=== PATIENT | male | born 1960 | race American Indian/Alaskan Native ===

== ENCOUNTER 2017-01-23 07:44 | Day surgery (SDC) | payer BC ==
[~2017-01-23 07:44] MED LIST: ANCEF/STERILE WATER 2 GM/20 ML IV NR
[2017-01-23] MEDS ORDERED: NACL 0.9% 1000 ML 1,000 ML ONE ×2 (08:50→11:13)
--- NOTE | 2017-01-23 08:55 | Anesthesia Consultation ---
Anesthesia Consult and Med Hx Date of service: 01/23/17 - Airway Anesthetic Teeth Evaluation: Good (missing 2nd molar lower right) ROM Head & Neck: Adequate Mental/Hyoid Distance: Adequate Mallampati Class: Class II Intubation Access Assessment: Probably Good - Pulmonary Exam CTA: Yes - Cardiac Exam Cardiac Exam: RRR - Pre-Operative Health Status ASA Pre-Surgery Classification: ASA2 Proposed Anesthetic Plan: General Nerve Block: IS - Pulmonary SOB: Yes (W/EXERTION) Hx Sleep Apnea: No (EDGAR PRE SCREEN HIGH RISK.) - Cardiovascular System Hx Hypertension: Yes (15 YRS (took metoprolol and lisinopril this am)) - Central Nervous System Hx Neuromuscular Disorder: Yes (Restless Leg Syndrome) Hx Psychiatric Problems: No - Endocrine Hx Non-Insulin Dependent Diabetes: Yes - Hematic Hx Anemia: No Hx Sickle Cell Disease: No - Other Systems Hx Alcohol Use: Yes (WEEKENDS USUALLY/6 BEERS) Hx Substance Use: No Hx Cancer: No
--- NOTE | 2017-01-23 08:55 | Anesthesia Day of Surgery ---
Anesthesia Day of Surgery - Day of Surgery Patient Examined: Yes Patient H&P Reviewed: Yes Patient is NPO: Yes Beta Blockers: Yes (took at 06:45 with sip water) Cardiac Clearance: No Pulmonary Clearance: No
[2017-01-23] MEDS ORDERED: SUBLIMAZE IV ONE (08:58)
[2017-01-23] MEDS ORDERED: PEPCID PO NR (09:00)
[2017-01-23] MEDS ORDERED: VERSED IV NR (09:00)
[2017-01-23] MEDS ORDERED: NACL 0.9% 1000 ML 1,000 ML IV SCH (09:00)
[2017-01-23] MEDS ORDERED: MARCAINE-EPI 0.5%-1:200,000 INFILTRATI ONE (09:27)
[2017-01-23] MEDS ORDERED: DIPRIVAN 10 MG/ML IV ONE (09:58)
[2017-01-23] MEDS ORDERED: SUBLIMAZE ONE (09:58)
[2017-01-23] MEDS ORDERED: XYLOCAINE MPF 2% ONE (09:58)
[2017-01-23] MEDS ORDERED: DECADRON ONE (09:58)
[2017-01-23] MEDS ORDERED: ROBINUL ONE ×2 (09:58)
[2017-01-23] MEDS ORDERED: BLOXIVERZ ONE (09:58)
[2017-01-23] MEDS ORDERED: ZEMURON IV ONE (09:58)
[2017-01-23] MEDS ORDERED: ZOFRAN ONE (09:59)
[2017-01-23] MEDS ORDERED: ADRENALIN IV ONE (10:40)
[2017-01-23] MEDS ORDERED: ePHEDrine SULFATE ONE (10:43)
[2017-01-23] MEDS ORDERED: LACTATED RINGERS 1,000 ML IV SCH (11:00)
[2017-01-23] MEDS ORDERED: ZOFRAN IV PRN (11:00)
[2017-01-23] MEDS ORDERED: DILAUDID IV PRN (11:00)
--- NOTE | 2017-01-23 12:06 | Short Stay Summary ---
Short Stay Documentation Date of service: 01/23/17 - Allergies and Medications Current Medications: Allergies No Known Allergies Allergy (Verified 01/18/17 18:04) Home Medications Medication Instructions Recorded Confirmed Last Taken Type Lisinopril [Zestril] 20 mg PO QDAY 01/18/17 01/18/17 01/23/17 06:45 History Metformin HCl [Glucophage] 1,000 mg PO BID 01/18/17 01/18/17 01/22/17 History Metoprolol Xl [Metoprolol 25 mg PO QDAY 01/18/17 01/18/17 01/23/17 06:45 History SUCCINATE ER TAB] Multivit-Min/FA/Lycopen/Lutein 1 each PO DAILY 01/18/17 01/18/17 01/22/17 History [Centrum Silver Tablet] Ropinirole HCl 0.5 mg PO QHS 01/18/17 01/18/17 01/22/17 History Sitagliptin Phosphate [Januvia] 50 mg PO DAILY 01/18/17 01/18/17 01/22/17 History glyBURIDE [Diabeta] 5 mg PO BID 01/18/17 01/18/17 01/22/17 History Active Medications Cefazolin Sodium (Ancef/Sterile Water 2 Gm/20 Ml) 2 gm IV PREOP NR Stop: 01/23/17 21:00 Famotidine (Pepcid) 20 mg PO PREOP NR Stop: 01/23/17 23:00 Last Admin: 01/23/17 09:14 Dose: 20 mg Hydromorphone HCl (Dilaudid) 0.5 mg IV Q10MIN PRN PRN Reason: Pain , Severe (7-10) Stop: 01/23/17 15:00 Sodium Chloride (Nacl 0.9% 1000 Ml) 1,000 mls @ 75 mls/hr IV DIRECT ZION Lactated Ringer's (Lactated Ringers) 1,000 mls @ 100 mls/hr IV DIRECT ZION Midazolam HCl (Versed) 2 mg IV PREOP NR Stop: 01/23/17 23:59 Last Admin: 01/23/17 09:20 Dose: 2 mg - Brief post op/procedure progress note Date of procedure: 01/23/17 Pre-op diagnosis: persistent left shoulder pain, adhesive capsulitis, AC joint arthritis, rot Post-op diagnosis: same Procedure: left shoudler arthroscopy, subacromial decompression, distal clavicle excision, lysis of adhesions, manipulation under anesthesia, debriedment of extensive subacromial bursitis, rotator cuff repair Anesthesia: GETA Findings: adhesive capsulitis, rotator cuff tear Surgeon: BALDOMERO GONSALES Estimated blood loss: minimal Pathology: none Condition: stable - Hospital course Hospital course: no complications - Disposition Condition at discharge: Good Disposition: DC-01 TO HOME OR SELFCARE Short Stay Discharge Plan Follow up with: CLAUDIA HINSON MD [Primary Care Provider] - 7 Days
[2017-01-23 13:36] VITALS: BP 136/58
--- NOTE | 2017-01-23 14:23 | Post Anesthesia Evaluation ---
- Post Anesthesia Evaluation Patient Participated: Yes Airway Patent: Yes Stable Respiratory Function: Yes Nausea/Vomiting: No Temp > 96.8F: Yes Pain Manageable: Yes Adequeate Hydration: Yes Anesthesia Complications: No
--- NOTE | 2017-01-23 22:37 | Operative Report ---
PREOPERATIVE DIAGNOSES: Persistent left shoulder pain, acromioclavicular joint arthritis, adhesive capsulitis with rotator cuff tear. POSTOPERATIVE DIAGNOSES: Persistent left shoulder pain, advanced acromioclavicular joint arthritic changes causing severe impingement upon the rotator cuff, adhesive capsulitis with marked severe loss of range of motion, extensive subacromial bursitis, rotator cuff tear involving the supraspinatus tendon. OPERATIVE PROCEDURE: Left shoulder arthroscopy, subacromial decompression, distal clavicle excision, lysis of adhesions, manipulation under anesthesia, debridement of extensive subacromial bursitis, arthroscopic [id number] rotator cuff repair. ANESTHESIA: General plus an interscalene block to the operative left upper extremity. PREOPERATIVE ANTIBIOTICS: Ancef 2 gm IV within 1 hour of skin incision. DVT prophylaxis open toe, thigh high compression stockings and SCD pumps to bilateral lower extremities. SURGEON: Brandt Epperson M.D. FIRST CALENDER WORKER: Whitley Carter, certified appliance service technician. OPERATIVE INSTRUMENTATION: Two #2 Cobraided sutures for [id number] rotator cuff repair. OPERATIVE COMPLICATIONS: None. OPERATION HISTORY AND PHYSICAL: This is a 56-year-old male who has had persistent progressively worsening left shoulder pain with marked loss of range of motion with severe limitation of his normal activities of daily living, which has failed to improve despite extensive nonoperative treatment. MRI scan was performed, which was positive for acromioclavicular joint arthritic changes as well as a full thickness tear involving the rotator cuff. The MRI findings and diagnosis were discussed at length and after making sure the patient understood the diagnosis and all his questions were answered. I then discussed treatment alternatives of surgical and nonsurgical including risks and benefits of both. After a long lengthy discussion, the patient opted to proceed with operative intervention. This will entail a left shoulder arthroscopy, subacromial decompression, distal clavicle excision, arthroscopic rotator cuff repair and surgery as indicated. The risks of which were discussed to include but not exclusive of infection, blood loss, nerve damage, loss of range of motion and persistent pain. Again, the patient understood. All questions answered and he wished to proceed with operative intervention. OPERATIVE PROCEDURE: The patient was seen in the preoperative holding area at which point an informed consent was reviewed and the appropriate left upper extremity was identified and then marked. Anesthesia then performed and interscalene block of the left upper extremity. After confirmation of adequate analgesia of the left upper extremity, the patient was then brought back to the operating room and placed supine on a standard operating room table, at which point general anesthesia was administered and endotracheal tube was inserted. After confirmation of adequate general anesthesia and checking appropriate placement of the endotracheal tube, we then made sure that all bony prominences were well padded. There were no wrinkles in the compression stockings on bilateral lower extremities and SCD pumps were applied to bilateral lower extremities. The patient has had to beach chair position using the beach chair positioner, which was already in place and his head was secured in a nice neutral position. The beach chair well arm callahan was used to secure the right arm in a neutral position. A pillow was placed beneath the posterior aspect of bilateral lower extremities placed in slight flexion of the hips and knees make sure the popliteal fossa was free and clear and the foot of the bed was slightly flexed. The left arm was then examined under anesthesia. The patient has severe loss of range of motion with forward flexion only to 120, abduction 90, external rotation of 40 degrees, internal rotation of 30 degrees. Following examination under anesthesia of the left upper extremity was then prepped and draped in the usual sterile fashion. After prepping and draping, a timeout was called and appropriate left upper extremity was identified which again had been marked in the preop holding area. I began the procedure by first making a standard posterior portal with a #15 blade. Once the portal was established, a cannula with blunt trocar was inserted into the intra-articular aspect of the glenohumeral joint. This went without difficulty or damage to articular cartilage. Once in place, the arthroscopic camera immediately placed in the anterior aspect of the joint where we established anterior portal by first inserting an 18-gauge spinal needle between the subscap and biceps tendon under direct arthroscopic visualization. Once confirmed the appropriate position, a 15 blade was then used to establish the anterior portal. Once the portal was established, blunt trocar was inserted via the portal site. Following an arthroscopic probe, we began our diagnostic arthroscopy in anterior aspect of the shoulder joint. The patient was found to have severe copious amount of severe adhesions with marked tightness throughout the glenohumeral joint capsule with severe inflammation and synovitis. The adhesions were gently debrided using 4.0 meniscal shaver. Hemostasis was achieved with the Arthrocare ablation wand. Once this was completed, the arthroscopic pump turned off to make sure good hemostasis and once this was confirmed, the arthroscopic pump was then turned back on. Inspection of the anterior, superior and posterior labrum showed these to be intact and stable when probed. The biceps tendon was seen to be intact. Next, the shoulder in its normal relation. There was a full thickness tear involving the supraspinatus tendon. The inspection actually reassessed so that to be no loose bodies present, although there were copious adhesions that had to be debrided. There is a normal bare area without Hill-Sachs lesion. The arthroscopic camera was then removed from the glenohumeral joint and then placed in the subacromial space. Once in the subacromial space, we saw there was a severe extensive subacromial bursitis. A third incision was made on the lateral aspect of the shoulder, not the distal clavicle from axillary nerve. Once the incision was made, the excess silicone bursitis was debrided using a 4.0 meniscal shaver. Hemostasis was achieved with the Arthrocare ablation wand. Once completed, the arthroscopic instrumentation was removed and then a gentle manipulation under anesthesia was performed. Once completed, there was forward flexion of 180, abduction 180, external rotation of 60 degrees, internal rotation of 60 degrees. Once completed, the arthroscopic camera was then placed back in the subacromial space. Once in the subacromial space, the arm was again taken through full range of motion under direct arthroscopic visualization and we can see there was severe impingement of the rotator cuff upon undersurface of the acromion. The soft tissue was removed from the undersurface acromion using Arthrocare ablation wand and then using the 4.0 hooded barrel bur, we carried out the subacromial decompression in standard fashion going from inferior to superior, posterior to anterior making sure not to leave any residual anterior hook. Once completed, we turned our attention to distal clavicle, which also seen to be arthritic and using a 4.0 hooded barrel bur, carried out a distal clavicle excision to a depth of approximately 6 mm. Once completed, the arm was again taken through full range of motion under direct arthroscopic visualization, we saw there was no further impingement of the rotator cuff upon undersurface of the acromial or distal clavicle. We turned our attention to the rotator cuff tear. There is a full thickness tear involving the supraspinatus tendon in its mid substance and this was repaired arthroscopically using the opus suture passer and a total of two #2 Cobraided sutures tied using the standard technique. Once complete, we had excellent repair of the rotator cuff tear. The arthroscopic pump turned off to make sure there is good hemostasis and once this was confirmed, the extraneous fluid was suctioned from the subacromial space using the arthroscopic. Following this, all the arthroscopic instrumentation was removed. The 3 portal sites were closed with 3-0 nylon in simple fashion. Adaptic, 4 x 4, ABD, paper tape, small abduction sling was applied. The patient sat down from the beachchair in the supine position. He was awakened from general anesthesia without complications in the recovery room in stable condition. Standard postoperative orders were written. JOB# [id number] MARLENE/MAISHA
== END 2017-01-23 14:10 | disposition home or self-care (01) ==
LOC: OR 07:44
PROVIDERS: ATTEND Orthopaedic Surgery
DX: S46.012A Strain of muscle(s) and tendon(s) of the rotator cuff of left shoulder, initial encounter (principal); M13.812 Other specified arthritis, left shoulder; M75.02 Adhesive capsulitis of left shoulder; M75.52 Bursitis of left shoulder; E11.9 Type 2 diabetes mellitus without complications; I10 Essential (primary) hypertension; G25.81 Restless legs syndrome; Z79.84 Long term (current) use of oral hypoglycemic drugs; Z79.899 Other long term (current) drug therapy; Z72.89 Other problems related to lifestyle; W18.30XA Fall on same level, unspecified, initial encounter; Y93.89 Activity, other specified; Y92.89 Other specified places as the place of occurrence of the external cause; Y99.8 Other external cause status
CPT/HCPCS: 29823; 29826; 29827; 82962; J0171; J0690; J1170; J2250; J2405; J2704; J2710; J3010; J7030; J1100